=== PATIENT | male | born 1995 | race Two or more races ===

== ENCOUNTER 2021-09-29 10:48 | Emergency (ER) | payer OTHER ==
[~2021-09-29] VITALS: Ht 172.7 cm; Wt 77.3 kg
[2021-09-29 11:03] VITALS: BP 146/65
[2021-09-29] MEDS ORDERED: LIDO700A32 TOP (11:57)
[2021-09-29] MEDS ORDERED: NAPR-56 PO (11:57)
[2021-09-29] MEDS ORDERED: ACET-1025 PO (11:57)
== END 2021-09-29 12:00 | disposition home or self-care (01) ==
LOC: ER 10:48
DX: S29.012D Strain of muscle and tendon of back wall of thorax, subsequent encounter (principal); M54.50 Low back pain, unspecified; V99.XXXD Unspecified transport accident, subsequent encounter
CPT/HCPCS: 99283